=== PATIENT | female | born 1975 | race Caucasian/White ===

== ENCOUNTER 2021-12-13 10:42 | Inpatient (IN) | payer BC, SELFPAY ==
[2021-12-13 10:49] VITALS: BP 129/84; PULSE 82; RESP 18; TEMP 36.3; O2SAT 97; BMI 29.9
[2021-12-13 11:45] VITALS: BP 134/73; PULSE 68; RESP 16; TEMP 36.8; O2SAT 97
[2021-12-13 11:45] LABS: Basophils % 0.4 %; Eosinophils # 0.1 10^3/uL (0.0-0.8); Eosinophils % 1.2 %; Hematocrit 43.1 % (37.0-47.0); Hemoglobin 14.5 g/dL (11.5-15.3); Lymphocytes # 2.5 10^3/uL (0.8-4.8); Lymphocytes % 31.5 %; Mean Corpuscular HGB Conc 33.6 g/dL (30.0-36.0); Mean Corpuscular Hemoglobin 29.5 pg (28.0-34.0); Mean Corpuscular Volume 87.8 fl (81-99); Mean Platelet Volume 10.4 fL (7.4-10.4); Monocytes # 0.4 10^3/uL (0.2-0.9); Monocytes % 5.2 %; Neutrophils # 4.97 10^3/uL (1.8-7.7); Neutrophils % 61.6 %; Nucleated Red Blood Cells % 0 %; Platelet Count 295 10^3/cmm (130-400); Red Blood Count 4.91 10^6/uL (4.1-5.3); Red Cell Distribution Width 12.2 % (12.1-15.1); White Blood Count 8.1 10^3/uL (4.0-10.0)
[2021-12-13 11:46] LABS: Add Urine Microscopic? NO; Charge for UA Resulting for Rev
[2021-12-13 11:50] LABS: Bilirubin Urine Neg (Negative); Blood Urine Neg (Negative); Glucose Urine UA Norm (Normal); Ketones Urine Negative (Negative); Leukocyte Esterase Urine Negative (Negative); Nitrate Urine Negative (Negative); Protein Urine Neg (Negative); Specific Gravity, Urine 1.005 (1.005-1.030); Urine Appearance Clear (CLEAR); Urine Color Yellow (Yellow); Urobilinogen Urine Neg (Negative); pH Urine 5 (5-7)
[2021-12-13 11:57] LABS: Amphetamines Screen Urine Negative (Negative); Barbiturates Screen Urine Negative (Negative); Benzodiazepines Screen Urine Negative (Negative); Cocaine Screen Urine Negative (Negative); Opiate Screen Urine Negative (Negative); PCP Screen Urine Negative (Negative); THC Screen Urine Positive (Negative)
--- NOTE | 2021-12-13 11:59 | PC.PHAR ---
pt states she takes care of her own medications-pt states she hasnt taken her zoloft 100mg daily last filled 10/13/21 30d/s for a month-pt states she has a novolog flexpen she uses [facility] states they havent filled that medication for the pt-pt states she dced the lithium 150mg tid in aug 2021-pt states she hasnt told her dr mendez ext med history shows last filled 11/12/21 30d/s-notes are made in the pharmacy comments
[2021-12-13 12:07] LABS: Alanine Aminotransferase 23 U/L (0-33); Albumin Level 4.7 g/dL (3.5-5.2); Alkaline Phosphatase 62 IU/L (35-105); Anion Gap 16.9 (5-19); Aspartate Amino Transferase 25 U/L (0-32); Blood Urea Nitrogen 13 mg/dL (6-20); Calcium 8.8 mg/dL (8.5-10.5); Carbon Dioxide 25 mmol/L (22-29); Chloride 101 mmol/L (98-107); Globulin 2.3 g/dL (1.3-4.6); Glomerular Filtration Rate 108.1 mL/min (90-130); Glucose 151 mg/dL (65-115); Osmolality Calculated 291 mOsm/kg (285-295); Potassium 3.9 mmol/L (3.5-5.1); Salicylate 0.5 mg/dL (3-10); Sodium 139 mmol/L (136-145); Total Bilirubin 0.4 mg/dL (0.15-1.2)
[2021-12-13 12:12] LABS: Acetaminophen < 5.0 ug/mL (10-30); Alcohol Level < 10 mg/dL (0-10)
[2021-12-13 12:20] LABS: Lithium 0.1 mmol/L (0.6-1.2)
--- NOTE | 2021-12-13 12:43 | W.ED.PSYCHS ---
HPI - Psych General: Chief Complaint: Psychiatric Symptoms Stated Complaint: Psych Issues Time Seen by Provider: 12/13/21 10:58 Source: patient Mode of arrival: ambulatory Limitations: no limitations History of Present Illness: 46-year-old female presents to the emergency room. States she has been having explosive episodes of anger and rage. She is thought about harming herself or harming others or anyone who confronts her gets in her way when she has these episodes. Her plan is to overdose she also has plans how to harm others whom she describes as getting in her way. She is on lithium for bipolar disorder but Taking it several months ago. She has not done anything to execute any lethality to this point. MD complaint: suicidal ideation and feels depressed Onset (ago): day(s) Duration: intermittent and getting worse Relieving factors: none Exacerbating factors: none Context: not taking psychiatric medications Associated psychiatric symptoms: depression, suicidal ideation, homicidal ideation, racing thoughts, auditory hallucinations and visual hallucinations Associated symptoms: Reports depression, homicidal ideation and suicidal ideation; Deny auditory hallucinations or visual hallucinations Treatments prior to arrival: none If self harm: admits thoughts of self harm and has plan Review of Systems Const: Denies: fever(s), chills, body aches, change in appetite, fatigue or malaise ENMT: Denies: throat pain, ear or mastoid pain, nasal discharge or nasal congestion Card: Denies: chest pain, palpitations, irregular heart rhythm, edema, dyspnea on exertion or orthopnea Resp: Denies: dyspnea, productive cough or non-productive cough GI: Denies: abdominal pain, nausea, vomiting, hematemesis, coffee ground emesis, diarrhea, constipation, bloating, hematochezia or melena : Denies: flank pain, difficulty voiding, dysuria, urinary frequency or urinary urgency Musc: Denies: neck pain or back pain Skin/Breast: Denies: rash or pruritus Psych: Reports: anxiety, depression, mood swings, suicidal ideation and homicidal ideation; Denies: visual hallucinations, auditory hallucinations or tactile hallucinations PFS ED PFSH: Medical History (Updated 12/13/21 @ 14:32 by Clayton Miramontes DO) Bipolar affect, depressed Social History (Updated 12/13/21 @ 14:23 by Christie iLao RN) Smoking and tobacco status: unknown if ever smoked Substance/Drug Use: current Substance/Drug use type: Marijuana Physical Exam Const: GENERAL APPEARANCE: cooperative and comfortable ORIENTATION/CONSCIOUSNESS: Yes awake, Yes oriented to person, Yes oriented to place and Yes oriented to time HENMT: COMMON NORMALS: normocephalic, atraumatic and hearing grossly normal bilaterally HEAD & SCALP: normocephalic and atraumatic Neck/C-Spine: COMMON NORMALS: no JVD Resp: COMMON NORMALS: normal respiratory effort, No retractions, No use of accessory muscles and clear to auscultation bilaterally AUSCULTATION: clear to auscultation bilaterally Cardio: COMMON NORMALS: no JVD, regular rate, regular rhythm and No murmurs present (Cardio) RATE: regular rate RHYTHM: regular rhythm Extremity: COMMON NORMALS: normal to inspection, capillary refill normal, no clubbing, cyanosis or edema, no calf tenderness and no pedal edema Neuro: SENSORIUM/ORIENTATION: Yes oriented to person, Yes oriented to place and Yes oriented to time Skin: COMMON NORMALS: no rashes or lesions noted GENERAL SKIN EXAM: no rashes or lesions noted Course Vital Signs: Vital signs: Vital Signs Temperature 98.2 F 12/13/21 14:00 Pulse Rate 67 12/13/21 14:00 Respiratory Rate 17 12/13/21 14:00 Blood Pressure 124/83 12/13/21 14:00 Pulse Oximetry 100 12/13/21 14:00 [facility] - Psych Medical Decision Making 96-hour hold placed on the patient given her expressed suicidal and homicidal ideation with significant details of plans. Discussed Dr. Quiroga and he is in agreement. Patient is agreeable to admission at this time my concern is if she becomes angry later she will want to leave so the 96-hour hold was done and I think it is in her best interest to have further evaluation. Medical Records I reviewed the patient's medical records. Lab Data I reviewed the patient's lab results. : 12/13/21 11:40 12/13/21 11:40 Laboratory Results WBC 8.1 10^3/uL (4.0-10.0) 12/13/21 11:40 RBC 4.91 10^6/uL (4.1-5.3) 12/13/21 11:40 Hgb 14.5 g/dL (11.5-15.3) 12/13/21 11:40 Hct 43.1 % (37.0-47.0) 12/13/21 11:40 MCV 87.8 fl (81-99) 12/13/21 11:40 MCH 29.5 pg (28.0-34.0) 12/13/21 11:40 MCHC 33.6 g/dL (30.0-36.0) 12/13/21 11:40 RDW 12.2 % (12.1-15.1) 12/13/21 11:40 Plt Count 295 10^3/cmm (130-400) 12/13/21 11:40 MPV 10.4 fL (7.4-10.4) 12/13/21 11:40 Neut % (Auto) 61.6 % 12/13/21 11:40 Lymph % (Auto) 31.5 % 12/13/21 11:40 [place] % (Auto) 5.2 % 12/13/21 11:40 Eos % (Auto) 1.2 % 12/13/21 11:40 Baso % (Auto) 0.4 % 12/13/21 11:40 Neut # (Auto) 4.97 10^3/uL (1.8-7.7) 12/13/21 11:40 Lymph # (Auto) 2.5 10^3/uL (0.8-4.8) 12/13/21 11:40 [place] # (Auto) 0.4 10^3/uL (0.2-0.9) 12/13/21 11:40 Eos # (Auto) 0.1 10^3/uL (0.0-0.8) 12/13/21 11:40 Baso # (Auto) 0.0 10^3/uL (0.0-0.1) 12/13/21 11:40 Nucleated RBC % (auto) 0 % 12/13/21 11:40 Nucleated RBCs # 0.0 /100WBC 12/13/21 11:40 Sodium 139 mmol/L (136-145) 12/13/21 11:40 Potassium 3.9 mmol/L (3.5-5.1) 12/13/21 11:40 Chloride 101 mmol/L (98-107) 12/13/21 11:40 Carbon Dioxide 25 mmol/L (22-29) 12/13/21 11:40 Anion Gap 16.9 (5-19) 12/13/21 11:40 BUN 13 mg/dL (6-20) 12/13/21 11:40 Creatinine 0.6 mg/dL (0.5-0.9) 12/13/21 11:40 GFR Calculation 108.1 mL/min (90-130) 12/13/21 11:40 Glucose 151 mg/dL (65-115) H 12/13/21 11:40 Calculated Osmolality 291 mOsm/kg (285-295) 12/13/21 11:40 Calcium 8.8 mg/dL (8.5-10.5) 12/13/21 11:40 Total Bilirubin 0.4 mg/dL (0.15-1.2) 12/13/21 11:40 AST 25 U/L (0-32) 12/13/21 11:40 ALT 23 U/L (0-33) 12/13/21 11:40 Alkaline Phosphatase 62 IU/L (35-105) 12/13/21 11:40 Total Protein 7.0 g/dL (6.6-8.7) 12/13/21 11:40 Albumin 4.7 g/dL (3.5-5.2) 12/13/21 11:40 Globulin 2.3 g/dL (1.3-4.6) 12/13/21 11:40 Urine Color Yellow (Yellow) 12/13/21 11:40 Urine Appearance Clear (CLEAR) 12/13/21 11:40 Urine pH 5 (5-7) 12/13/21 11:40 Ur Specific [place] 1.005 (1.005-1.030) 12/13/21 11:40 Urine Protein Neg (Negative) 12/13/21 11:40 Urine Glucose (UA) Norm (Normal) 12/13/21 11:40 Urine Ketones Negative (Negative) 12/13/21 11:40 Urine Blood Neg (Negative) 12/13/21 11:40 Urine Nitrate Negative (Negative) 12/13/21 11:40 Urine Bilirubin Neg (Negative) 12/13/21 11:40 Urine Urobilinogen Neg mg/dL (Negative) 12/13/21 11:40 Ur Leukocyte Esterase Negative (Negative) 12/13/21 11:40 Salicylates 0.5 mg/dL (3-10) L 12/13/21 11:40 Urine Opiates Screen Negative ng/mL (Negative) 12/13/21 11:40 Acetaminophen < 5.0 ug/mL (10-30) L 12/13/21 11:40 Ur Barbiturates Screen Negative ng/mL (Negative) 12/13/21 11:40 Ur Phencyclidine Scrn Negative ng/mL (Negative) 12/13/21 11:40 Ur Amphetamines Screen Negative ng/mL (Negative) 12/13/21 11:40 U Benzodiazepines Scrn Negative ng/mL (Negative) 12/13/21 11:40 Metter 0.1 mmol/L (0.6-1.2) L 12/13/21 11:40 Urine Cocaine Screen Negative ng/mL (Negative) 12/13/21 11:40 U Marijuana (THC) Screen Positive ng/mL (Negative) H 12/13/21 11:40 Ethyl Alcohol < 10 mg/dL (0-10) 12/13/21 11:40 Discharge Plan Discharge Patient Disposition: Admitted As Inpatient Admit Provider: Adrian Quiroga Clinical Impression: Suicidal ideation, Bipolar affect, depressed Condition: Stable 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
[2021-12-13 12:56] VITALS: BP 109/86; PULSE 66; RESP 18; O2SAT 92
[2021-12-13 14:00] VITALS: BP 124/83; PULSE 67; RESP 17; TEMP 36.8; O2SAT 100
[2021-12-13 16:27] LABS: Glucose Point of Care 192 mg/dL (70-110)
[2021-12-13] MEDS: omega-3 fatty acids 1,000 mg Capsule 1000 MG PO (17:44)
[2021-12-13] MEDS: metformin 500 mg Tablet 1000 MG PO (17:45)
[2021-12-13] MEDS: gabapentin 300 mg Capsule 600 MG PO (17:45)
[2021-12-13] MEDS: atorvastatin 40 mg Tablet 20 MG PO (17:45)
[2021-12-13 19:53] VITALS: BP 94/53; PULSE 63; RESP 16; TEMP 36.9; O2SAT 98
[2021-12-13 20:15] LABS: Glucose Point of Care 232 mg/dL (70-110)
[2021-12-13] MEDS: quetiapine 25 mg Tablet 50 MG PO (21:09)
[2021-12-14 06:00] VITALS: BP 108/77; PULSE 66; RESP 16; TEMP 36.6; O2SAT 98
[2021-12-14] MEDS: cyanocobalamin 1,000 mcg Tablet 500 MCG PO (06:40)
[2021-12-14] MEDS: pantoprazole DR 40 mg Tablet PO (06:41)
[2021-12-14 06:48] LABS: Glucose Point of Care 140 mg/dL (70-110)
[2021-12-14] MEDS: ibuprofen 800 mg tablet PO (09:00)
[2021-12-14] MEDS: gabapentin 300 mg Capsule 600 MG PO ×2 (09:00→17:38)
[2021-12-14] MEDS: cyclobenzaprine 10 mg Tablet PO (09:01)
[2021-12-14] MEDS: metformin 500 mg Tablet 1000 MG PO ×2 (09:01→17:39)
[2021-12-14] MEDS: omega-3 fatty acids 1,000 mg Capsule 1000 MG PO ×2 (09:01→17:39)
[2021-12-14 11:56] LABS: Glucose Point of Care 112 mg/dL (70-110)
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
[2021-12-14 14:00] VITALS: BP 118/78; PULSE 84; RESP 17; TEMP 36.8; O2SAT 98
[2021-12-14] MEDS: gabapentin 300 mg Capsule PO (16:00)
[2021-12-14 16:40] LABS: Glucose Point of Care 165 mg/dL (70-110)
[2021-12-14] MEDS: atorvastatin 40 mg Tablet 20 MG PO (17:38)
[2021-12-14] MEDS: lurasidone 20 mg Tablet PO (17:38)
[2021-12-14] MEDS: blistex lip oint 7 gm Tube 1 APPLIC TOPICAL (18:57)
[2021-12-14] MEDS: quetiapine 25 mg Tablet 50 MG PO (20:45)
[2021-12-14 20:50] LABS: Glucose Point of Care 152 mg/dL (70-110)
[2021-12-14 22:00] VITALS: BP 117/83; PULSE 73; RESP 18; TEMP 36.7; O2SAT 98
[2021-12-15 05:26] VITALS: BP 98/66; PULSE 70; RESP 17; TEMP 36.9; O2SAT 98
[2021-12-15] MEDS: pantoprazole DR 40 mg Tablet PO (06:16)
[2021-12-15] MEDS: cyanocobalamin 1,000 mcg Tablet 500 MCG PO (06:16)
[2021-12-15 06:30] LABS: Glucose Point of Care 127 mg/dL (70-110)
[2021-12-15] MEDS: omega-3 fatty acids 1,000 mg Capsule 1000 MG PO ×2 (09:56→17:17)
[2021-12-15] MEDS: metformin 500 mg Tablet 1000 MG PO ×2 (09:56→17:17)
[2021-12-15] MEDS: hyDROXYzine 25 mg Capsule 50 MG PO ×2 (10:03→17:33)
--- NOTE | 2021-12-15 10:38 | PC.NURSE ---
PRN MED PT GIVEN 50MG VISTARIL FOR STATED ANXIETY, WILL CONTINUE TO MONITOR.
--- NOTE | 2021-12-15 10:46 | PC.NURSE ---
In room to complete assessment. Denies SI/HI and AVH. Does report uneasy feelings and bad dreams. States, I know their not real, just makes me feel uneasy at times. Does report anxiety. Med nurse notified to give anti anxiety meds. Able to process through feelings and states, I am really here to get help and I want to get help, All questions answered and support voiced.
[2021-12-15] MEDS: gabapentin 300 mg Capsule PO (11:22)
[2021-12-15 11:31] LABS: Glucose Point of Care 174 mg/dL (70-110)
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
[2021-12-15 14:00] VITALS: BP 110/76; PULSE 88; RESP 17; TEMP 37; O2SAT 100
--- NOTE | 2021-12-15 14:48 | PC.SOCIAL ---
Patient attended and participated in group.
[2021-12-15 16:40] LABS: Glucose Point of Care 109 mg/dL (70-110)
[2021-12-15] MEDS: atorvastatin 40 mg Tablet 20 MG PO (17:15)
[2021-12-15] MEDS: lurasidone 20 mg Tablet 40 MG PO (17:16)
[2021-12-15] MEDS: gabapentin 300 mg Capsule 600 MG PO ×2 (17:17→20:40)
--- NOTE | 2021-12-15 17:35 | PC.NURSE ---
PRN MED PT GIVEN 50MG VISTARIL FOR STATED ANXIETY, WILL CONTINUE TO MONITOR.
[2021-12-15 19:59] VITALS: BP 111/80; PULSE 86; RESP 17; TEMP 36.7; O2SAT 99
[2021-12-15] MEDS: prazosin 1 mg Capsule PO (20:41)
[2021-12-15] MEDS: quetiapine 25 mg Tablet 50 MG PO (20:42)
--- NOTE | 2021-12-15 22:30 | PC.NURSE ---
CBG 167
[2021-12-16 06:00] VITALS: BP 128/80; PULSE 83; RESP 19; TEMP 36.4; O2SAT 99
[2021-12-16] MEDS: cyanocobalamin 1,000 mcg Tablet 500 MCG PO (06:35)
[2021-12-16] MEDS: pantoprazole DR 40 mg Tablet PO (06:35)
[2021-12-16 06:38] LABS: Glucose Point of Care 134 mg/dL (70-110)
[2021-12-16] MEDS: metformin 500 mg Tablet 1000 MG PO ×2 (08:58→17:07)
[2021-12-16] MEDS: gabapentin 300 mg Capsule 600 MG PO ×3 (08:59→20:54)
[2021-12-16] MEDS: omega-3 fatty acids 1,000 mg Capsule 1000 MG PO ×2 (08:59→17:07)
[2021-12-16 11:41] LABS: Glucose Point of Care 121 mg/dL (70-110)
[2021-12-16] MEDS: gabapentin 300 mg Capsule PO (12:18)
[2021-12-16 14:00] VITALS: BP 115/80; PULSE 81; RESP 17; TEMP 36.6; O2SAT 98
[2021-12-16] MEDS: atorvastatin 40 mg Tablet 20 MG PO (17:05)
[2021-12-16] MEDS: lurasidone 20 mg Tablet 40 MG PO (17:07)
[2021-12-16 17:25] LABS: Glucose Point of Care 134 mg/dL (70-110)
--- NOTE | 2021-12-16 19:26 | P.NPUPN_ITS ---
Subjective NPU Subjective: Patient presents today reporting that she feels like she is doing better on the medication. We discussed the risk benefits and alternatives of continuing the plan of titration and moving Latuda to 60 mg p.o. daily. We also discussed increasing the Seroquel to assist with her sleep and seeing how she was doing in the morning. Her 96-hour hold is up tomorrow and she reports feeling significantly better. We discussed the possibility of her signing in if we need additional time for treatment. Mental Status Exam MSE Comments: This is an obese white female in hospital scrubs with adequate grooming and eye contact. No abnormal movements. Cooperative with exam in mild distress. Speech was normal rate and volume. Mood described as getting better, affect congruent. Thought process organized. Thought contact: patient denies suicidal or homicidal ideation, there were no delusions reported or noted, patient denied auditory or visual hallucinations. Attention and concentration appeared intact and memory appeared reliable but none were formally tested. Patient is alert and oriented times three. Insight and judgment appear fair and impulse control appears limited. Vitals/I&O/Wt Last Vital Signs Temp 97.8 F 12/16/21 21:16 Pulse 72 12/16/21 21:16 Resp 19 H 12/16/21 21:16 BP 123/78 12/16/21 21:16 Pulse Ox 100 12/16/21 21:16 Data NPU : 12/13/21 11:40 12/13/21 11:40 A&P Assessment and plan (1) Bipolar affect, depressed: Status: Acute (2) Borderline personality disorder: Status: Acute (3) Suicidal ideation: Status: Acute Plan This is a 46-year-old female with a long history of mood instability and very low self-esteem who reports episodes of rage. Plan: 1.? Continue current medication.? Gabapentin 2100 mg daily, increased Seroquel to 100 mg.? We will increase Latuda to 60 mg q. 1700 and gradually increase as tolerated.? Add prazosin 1 mg for nightmares. 2.? Continue every 15 minute checks for safety. 3.? Encourage individual, group and milieu therapies. 4.? Encourage sober living treatment after discharge at the highest level of care to which she is willing to commit. 5.? We will reevaluate for discharge tomorrow and determine whether she needs to sign in voluntarily versus discharge to home. Involuntary Hold Information 96 Hour Hold: 96 Hour Involuntary Admission: Yes 96 Hour Hold Ending Date: 12/17/21 Attestations NPU Medical Necessity Statement*: Inpatient hospitalization is medically necessary and the clinically appropriate intervention at this time.? We will initiate medications and make changes as indicated. Likely length of stay 1 to 3 days. Coding Level of Care Code Acute Change Agent for [facility] Fwd Diagnoses Bipolar affect, depressed F31.30 Borderline personality disorder F60.3 Suicidal ideation R45.851
[2021-12-16] MEDS: trazodone 50 mg Tablet PO (20:54)
[2021-12-16] MEDS: prazosin 1 mg Capsule PO (20:54)
[2021-12-16 21:16] VITALS: BP 123/78; PULSE 72; RESP 19; TEMP 36.6; O2SAT 100
[2021-12-16 21:50] LABS: Glucose Point of Care 141 mg/dL (70-110)
[2021-12-17 06:00] VITALS: BP 119/80; PULSE 75; RESP 17; TEMP 36.5; O2SAT 98
[2021-12-17] MEDS: cyanocobalamin 1,000 mcg Tablet 500 MCG PO (06:21)
[2021-12-17] MEDS: gabapentin 300 mg Capsule 600 MG PO (06:22)
[2021-12-17] MEDS: pantoprazole DR 40 mg Tablet PO (06:22)
[2021-12-17 06:47] LABS: Glucose Point of Care 114 mg/dL (70-110)
--- NOTE | 2021-12-17 06:52 | PC.NURSE ---
CBG was 114
[2021-12-17] MEDS: omega-3 fatty acids 1,000 mg Capsule 1000 MG PO ×2 (09:31→17:05)
[2021-12-17] MEDS: metformin 500 mg Tablet 1000 MG PO ×2 (09:31→17:05)
[2021-12-17 12:52] LABS: Glucose Point of Care 145 mg/dL (70-110)
[2021-12-17] MEDS: gabapentin 300 mg Capsule PO (14:21)
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
[2021-12-17 16:47] VITALS: BP 119/80; PULSE 75; RESP 17; TEMP 36.5; O2SAT 98
[2021-12-17] MEDS: lurasidone 20 mg Tablet 60 MG PO (17:04)
[2021-12-17] MEDS: atorvastatin 40 mg Tablet 20 MG PO (17:05)
== END 2021-12-17 17:10 | disposition home or self-care (01) | DRG 885 ==
LOC: ER 12:44 → NP 14:29
PROVIDERS: Admitting Provider Psychiatry & Neurology Psychiatry; Emergency Provider Family Medicine; PCP Nurse Practitioner Family; Visit Provider Psychiatry & Neurology Psychiatry
DX: F31.9 Bipolar disorder, unspecified (principal); R45.851 Suicidal ideations; F60.3 Borderline personality disorder; Z79.891 Long term (current) use of opiate analgesic; E11.9 Type 2 diabetes mellitus without complications; Z79.84 Long term (current) use of oral hypoglycemic drugs; Z79.4 Long term (current) use of insulin
CPT/HCPCS: 36416; 80053; 80178; 80306; 80307; 81003; 82962; 85025; 96372; 97150; 97165; 99285; J1815